=== PATIENT | male | born 1965 | race Caucasian/White ===

== ENCOUNTER 2021-09-10 10:22 | Inpatient (IN) ==
--- NOTE | 2021-09-06 15:37 | XRay Report ---
HISTORY: Preop for knee arthroplasty, bronchitis and asthma FINDINGS: The lungs are clear and not hyperinflated. The heart, mediastinum, alix and pleura are normal. There has been no significant change since 09/21/18. IMPRESSION: Normal chest. Interpreted and Authenticated by: Cam Gonzalez 09/06/21
[2021-09-06 16:28] LABS: Basophils # (Auto) 0.07 K/mcL (0.00-0.30); Eosinophils # (Auto) 0.12 K/mcL (0.00-0.70); Eosinophils % (Auto) 1.7 % (0.0-7.0); Hematocrit 45.8 % (40.1-51.0); Hemoglobin 15.2 g/dL (13.7-17.5); Lymphocytes # (Auto) 2.66 K/mcL (1.50-4.80); Mean Corpuscular HGB Conc 33.2 g/dL (31.0-36.0); Mean Platelet Volume 10.1 fL (7.4-10.4); Monocytes % (Auto) 8.3 % (1.0-12.0); Platelet Count 259 K/mcL (140-440); RBC 4.98 M/mcL (4.63-6.08); Red Cell Distribution Width 12.6 % (11.5-14.5); WBC 7.2 K/mcL (4.5-11.0)
[2021-09-06 17:11] LABS: Blood Urea Nitrogen 14 mg/dL (6-20); Calcium 9.5 mg/dL (8.6-10.4); Carbon Dioxide 28 mmol/L (22-30); Chloride 100 mmol/L (96-108); Glomerular Filtration Rate 83; Glucose 104 mg/dL (70-105)
[2021-09-06 17:36] LABS: Appearance,Urine CLEAR (Clear); Bilirubin,Urine Negative (Negative); Color,Urine YELLOW; Culture Indicated,Urine No; Glucose,Urine (UA) Negative (Negative); Ketones,Urine Negative (Negative); Leukocyte Esterase,Urine Negative /uL (Negative); Nitrate,Urine Negative (Negative); Protein,Urine Negative (Negative); Specific Gravity,Urine 1.021 (1.000-1.035); Urine Blood Negative (Negative); Urobilinogen,Urine Negative
--- NOTE | 2021-09-07 07:33 | EKG ---
[facility] Test Date: 2021-09-06 Pat Name: Gonzales Herring Department: [facility] Room: Gender: Male Application Support Engineer: : [id number] Requested By: Sunny Hoyt Order Number: [id number] Reading MD: Jerome Mcdonald D.O. Measurements Intervals Frost Rate: 60 P: 41 NC: 170 QRS: 24 QRSD: 109 T: 24 QT: 442 QTc: 442 Interpretive Statements Sinus rhythm Electronically Signed On 09-07-2021 7:33:41 PDT by Jerome Mcdonald D.O. /store/[email or web address]/[id number]
[~2021-09-10 10:22] MED LIST: 0.9 % SODIUM CHLORIDE 9 ML, KETOROLAC 30 MG, ROPIVACAINE HCL/PF 49.5 ML, EPINEPHrine 0.... IJ SCH; ACETAMINOPHEN 500 MG TABLET PO SCH; CELECOXIB 200 MG CAPSULE PO SCH; GABAPENTIN 300 MG CAPSULE PO SCH; IPRATROPIUM/ALBUTEROL 3 ML AMPUL.NEB NEB PRN; SCOPOLAMINE 1 PATCH PATCH TOPICAL PRN; ceFAZolin 3 GM in DEXTROSE 5% IN WATER 50 ML IV SCH; oxyCODONE 10 MG TAB.ER.12H PO SCH
[2021-09-10] MEDS ORDERED: DEXAMETHASONE 10 MG/ML VIAL ONE (16:53)
[2021-09-10] MEDS ORDERED: PROPOFOL 200 MG/20 ML VIAL IV ONE (16:53)
[2021-09-10] MEDS ORDERED: KETAMINE 50 MG/ML Syringe (ANEST) IV ONE (16:53)
[2021-09-10] MEDS ORDERED: ePHEDrine 50 MG/5 ML SYRINGE (ANEST) IV ONE (16:53)
[2021-09-10] MEDS ORDERED: MAGNESIUM SULFATE 2 GM/50 ML BAG IV ONE (16:53)
[2021-09-10] MEDS ORDERED: ROPIVACAINE HCL/PF 20 ML VIAL IJ ONE (16:53)
[2021-09-10] MEDS ORDERED: TRANEXAMIC ACID 1,000 MG/10 ML VIAL ONE (16:53)
[2021-09-10] MEDS ORDERED: ONDANSETRON 4 MG/2 ML VIAL ONE (16:53)
[2021-09-10] MEDS ORDERED: LIDOCAINE HCL/PF 100 MG/5 ML SYRINGE IV ONE (16:53)
--- NOTE | 2021-09-10 16:57 | Discharge Plan ---
Discharge Instructions - TKA Patient Instructions Total Knee Protocol: For Total Knee: Start ROM PATRICE with stationary bike or rocking chair. Work on gaining full extension of knee. Posterior dislocation precautions provided. Hip abductor strengthening and gait training instructions provided. Apply Cryocuff as instructed. Additional Dressing Instructions: Leave Zip line closure patch intact until followup Discharge Plan Patient/Caregiver Discharge Instructions Activity: ambulate only with your walker and as per physical therapy Diet: Regular Diet Prescriptions: New aspirin [Ecotrin Low Strength] 81 mg tablet,delayed release (DR/EC) 81 mg PO BID Qty: 60 0RF oxycodone-acetaminophen 5-325 mg tablet 1 - 2 tab PO Q4H MDD 8 PRN (Reason: pain) Qty: 75 0RF docusate sodium 100 mg capsule 100 mg PO BID Qty: 60 0RF No Action cholecalciferol (vitamin D3) 1,250 mcg (50,000 unit) capsule 1,250 mcg PO WE@0900 0RF losartan 50 mg tablet 50 mg PO DAILY 0RF fluoride (sodium) 1.1 % cream 1 applic dental BID 0RF mometasone 220 mcg/ actuation (120) aerosol powdr breath activated 220 mcg inhalation BID Qty: 3 3RF Rx Instructions: Vigorously gargle, rinse, and spit after each use fluticasone propionate [Flonase Allergy Relief] 50 mcg/actuation spray,suspension 1 spray intranasal BID Qty: 48 3RF Rx Instructions: administer into each nostril (DME) AutoPAP 9-15 cwp and supplies See Rx Instructions .Route .MEDSUPPLY Qty: 1 0RF Rx Instructions: Please assist with pressure change. triamcinolone acetonide 1 DOSE cream 1 dose topical BID 0RF omeprazole 20 MG capsule 20 mg PO ACB 0RF aspirin 81 MG tablet,delayed release (DR/EC) 81 mg PO DAILY 0RF Label Comments: HOLDING FOR SURGERY pravastatin 20 MG tablet 20 mg PO DAILY 0RF hydrochlorothiazide 25 MG tablet 25 mg PO DAILY 0RF carboxymethylcellulose sodium 1 EACH dropperette,gel 1 each OP BID 0RF Label Comments: BOTH EYES acetaminophen 325 MG capsule 650 mg PO BID 0RF albuterol sulfate 90 mcg/actuation aerosol powdr breath activated 2 inh inhalation DAILYP PRN (Reason: Shortness Of Breath) 0RF polyethylene glycol 3350 17 gram powder in packet 17 g PO DAILY 0RF chlorthalidone 25 mg Tablet 25 mg PO DAILY 0RF trazodone 100 mg Tablet 200 mg PO HSP PRN (Reason: Insomnia) 0RF gabapentin 300 mg Capsule 300 mg PO DAILY 0RF gabapentin 300 mg Capsule 600 mg PO HS 0RF ipratropium bromide 21 mcg (0.03 %) [place],Non-Aerosol 2 spray INTRANASAL BID 0RF Rx Instructions: administer into each nostril naproxen 500 mg Tablet 500 mg PO BID 0RF Label Comments: WILL HOLD FOR SURGERY methocarbamol 750 mg Tablet 1,500 mg PO BID 0RF benzonatate 100 mg capsule 100 mg PO BIDP PRN (Reason: Cough) 0RF Other Ambulatory Orders: CPM Discharge Order (ONCE) Location: None Selected Ordered By: Pranay Terry Physical Therapy DC - TKA (Routine) Location: None Selected Ordered By: Pranay Terry Toilet Riser Discharge Order (ONCE) Location: None Selected Ordered By: Pranay Terry Walker (ONCE) Location: None Selected Ordered By: Pranay Terry Follow Up Plan Follow up with: Pranay Terry PA-C [Physician Hospice Physician] - Patient Disposition: Home, Self-Care Prognosis: Good Rehab Potential: Good I certify that the patient requires SNF services: No Overall status at discharge: patient is progressing back to baseline Discharge Orders: Discharge Order (Routine); Ordered 09/11/21 Ordered By: Pranay Terry
[2021-09-10] MEDS ORDERED: MEPERIDINE 25 MG/ML VIAL IV PRN (18:48)
[2021-09-10] MEDS ORDERED: PROMETHAZINE 25 MG/ML VIAL IV PRN (18:48)
[2021-09-10] MEDS ORDERED: HYDROmorphone 0.5 MG/0.5 ML SYRINGE IV PRN (18:48)
[2021-09-10] MEDS ORDERED: ACETAMINOPHEN 1,000 MG/100 ML BAG IV ONE (18:48)
[2021-09-10] MEDS ORDERED: NALOXONE HCL 0.4 MG/ML VIAL IV PRN (18:48)
[2021-09-10] MEDS ORDERED: diphenhydrAMINE 50 MG/ML VIAL IV PRN (18:48)
[2021-09-10] MEDS ORDERED: IPRATROPIUM/ALBUTEROL 3 ML AMPUL.NEB NEB PRN (18:48)
[2021-09-10] MEDS ORDERED: ONDANSETRON 4 MG/2 ML VIAL IV PRN ×2 (18:48→19:08)
[2021-09-10] MEDS ORDERED: fentaNYL 100 MCG/2 ML VIAL IV PRN (18:48)
[2021-09-10] MEDS ORDERED: LACTATED RINGERS 250 ML IV PRN (18:48)
[2021-09-10] MEDS ORDERED: LACTATED RINGERS 1,000 ML IV SCH (19:00)
[2021-09-10] MEDS ORDERED: HYDROcodone/APAP 10/325MG TABLET PO PRN (19:08)
[2021-09-10] MEDS ORDERED: FLEETS ADULT ENEMA PR PRN (19:08)
[2021-09-10] MEDS ORDERED: BISACODYL 10 MG SUPP.RECT PR PRN (19:08)
[2021-09-10] MEDS ORDERED: HYDROmorphone 1 MG/ML SYRINGE IV PRN (19:08)
[2021-09-10] MEDS ORDERED: MAGNESIUM HYDROXIDE 30 ML ORAL.SUSP PO PRN (19:08)
[2021-09-10] MEDS ORDERED: TRANEXAMIC ACID 1,000 MG/10 ML VIAL IV ONE (19:08)
[2021-09-10] MEDS ORDERED: TEMAZEPAM 15 MG CAPSULE PO PRN (19:08)
[2021-09-10] MEDS ORDERED: ACETAMINOPHEN 325 MG TABLET PO PRN (19:08)
[2021-09-10] MEDS ORDERED: BENZOCAINE/MENTHOL 1 LOZENGE PO PRN (19:08)
[2021-09-10] MEDS ORDERED: POLYETHYLENE GLYCOL 3350 17 GM PACKET PO PRN (19:08)
--- NOTE | 2021-09-10 19:08 | Brief Operative Note ---
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
[2021-09-10] MEDS ORDERED: traZODone HCL 100 MG TABLET PO PRN (19:11)
[2021-09-10] MEDS ORDERED: BENZONATATE 100 MG CAPSULE PO PRN (19:11)
[2021-09-10] MEDS ORDERED: ALBUTEROL SULFATE 200 PUFF INHALER INH PRN (19:22)
[2021-09-10] MEDS: 0.45 % SODIUM CHLORIDE 1,000 ML IV SCH (20:37)
[2021-09-10] MEDS: 0.9 % SODIUM CHLORIDE 10 ML SYRINGE IV SCH (20:42)
[2021-09-10] MEDS: DOCUSATE SODIUM 100 MG CAPSULE PO SCH (20:43)
[2021-09-10] MEDS: ASPIRIN 81 MG TAB.CHEW PO SCH (20:43)
[2021-09-10] MEDS: NAPROXEN 250 MG TABLET PO SCH (20:44)
[2021-09-10] MEDS: METHOCARBAMOL 750 MG TABLET PO SCH (20:44)
[2021-09-10] MEDS: FLUORIDE 1.1% TOPICAL SCH (20:46)
[2021-09-10] MEDS: FLUTICASONE PROPIONATE SPRAY.NAS NS SCH (20:47)
[2021-09-10] MEDS: IPRATROPIUM 0.03% NASAL SPRAY BOTTLE 30ML NAS SCH (20:47)
[2021-09-10] MEDS: MOMETASONE INH SCH (20:48)
[2021-09-10] MEDS: CARBOXYMETHYLCELLULOSE SODIUM 1 EACH DROPER.GEL OU SCH (20:48)
[2021-09-10] MEDS ORDERED: SENNOSIDES 1 TABLET PO SCH (21:00)
[2021-09-10] MEDS ORDERED: GABAPENTIN 300 MG CAPSULE PO SCH (21:00)
[2021-09-10] MEDS: ceFAZolin 1 GM VIAL IV SCH (23:54)
--- NOTE | 2021-09-11 04:02 | XRay Report ---
CLINICAL INFORMATION: Post-Op Total Knee revision COMPARISON: Preoperative films 09/06/2021 FINDINGS: Total knee revision is anatomically aligned. No osseous abnormalities. Periarticular soft tissue swelling seen as expected. IMPRESSION: Total knee revision in anatomic alignment Interpreted and Authenticated by: Gregg Solomon 09/11/21
[2021-09-11] MEDS: 0.9 % SODIUM CHLORIDE 10 ML SYRINGE IV SCH (05:19)
[2021-09-11] MEDS: 0.45 % SODIUM CHLORIDE 1,000 ML IV SCH (05:19)
--- NOTE | 2021-09-11 07:22 | Orthopedic Progress Note ---
SUBJECTIVE Subjective Patient information: Note initiated : 09/11/21 at 7:21 am Service Date, if different from initiated Date: [] Patient: Gonzales Herring 56 y/o M admitted on 09/10/21 for Left Total Knee Arthroplasty Revision . Chief Complaint: [Pt is stable this morning on post operative day without any significant concerns or complaints. Patients vital signs have remained stable. Patients dressing is dry and is grossly intact from a neurovascular and motor standpoint. Patients 10 point ROS is otherwise negative. ] Constitutional Vitals: Vital Signs Temp Pulse Resp BP Pulse Ox 97.9 F 77 18 105/63 93 09/11/21 03:24 09/11/21 03:24 09/11/21 03:24 09/11/21 03:24 09/11/21 03:24 Period Temp Pulse Resp BP Sys/Johns Pulse Ox Last 24 Hr 96.8 F-98.6 F 59-87 16-21 105-158/63-97 93-100 Intake and Output 09/10/21 09/11/21 09/11/21 21:59 05:59 13:59 Intake Total 2450 3590 Output Total 50 1974 Balance 2400 1615 Weight 272 lb 8 oz Intake & Output: Intake & Output 09/10/21 09/11/21 09/11/21 21:59 05:59 13:59 Intake Total 2450 3590 Output Total 50 1974 Balance 2400 1615 Weight 272 lb 8 oz Intake: IV 150 870 Sodium Chloride 0.45% 1,000 ml 870 @ 100 mls/hr IV .Q10H [facility] Rx#: [id number] Ancef 3 gm In Dextrose 5% in 50 Water 50 ml @ 100 mls/hr IV PREOP [facility] Rx#:[id number] Oral 500 2720 IV - Manual Only 1800 Output: Void Amount 1975 Estimated Blood Loss 50 Other: Urine Appearance Clear Clear Straight Clear Urine Color Bright Yellow Bright Yellow Straight Bright Yellow Urine Odor Normal Strong Straight Normal Extremities Exam Extremities exam: Present normal capillary refill, normal inspection, Foot pink and warm and neurovascular intact OBJ DATA Labs CBC & Chem 7: 09/11/21 05:19 09/06/21 12:55 Labs: Abnormal Lab Results 09/11/21 05:19 Hct 38.6 L Meds: Medications Acetaminophen (Acetaminophen 325 Mg Tablet) 650 mg PO Q6HP PRN; Protocol PRN Reason: Per Pain Protocol/Fever > 101 Acetaminophen (Acetaminophen 325 Mg Tablet) 650 mg PO BID [facility] Hydrocodone Bitart/Acetaminophen (Hydrocodone/Apap 10/325mg Tablet) 1 - 2 tab PO Q4HP PRN; Protocol PRN Reason: Per Pain Protocol Albuterol Sulfate (Albuterol Sulfate 200 Puff Inhaler) 2 puff INH DAILYP PRN PRN Reason: Shortness Of Breath Artificial Tears (Carboxymethylcellulose Sodium 1 Each Droper.Gel) 1 each OU BID [facility] Last Admin: 09/10/21 20:48 Dose: 1 each Documented by: Aspirin (Aspirin 81 Mg Tab.Chew) 81 mg PO BID [facility] Last Admin: 09/10/21 20:43 Dose: 81 mg Documented by: Benzonatate (Benzonatate 100 Mg Capsule) 100 mg PO BIDP PRN PRN Reason: Cough Bisacodyl (Bisacodyl 10 Mg Supp.Rect) 10 mg TX Q2-3DAYS PRN PRN Reason: Constipation Cefazolin Sodium (Cefazolin 1 Gm Vial) 2 gm IV Q8H [facility]; Protocol Stop: 09/11/21 08:01 Last Admin: 09/10/21 23:54 Dose: 2 gm Documented by: Chlorthalidone (Chlorthalidone 25 Mg Tablet) 25 mg PO DAILY [facility] Docusate Sodium (Docusate Sodium 100 Mg Capsule) 100 mg PO BID [facility] Last Admin: 09/10/21 20:43 Dose: 100 mg Documented by: Ergocalciferol (Ergocalciferol (Vitamin D2) 50,000 Unit Capsule) 1,250 unit PO WE@0900 [facility] Fluticasone Propionate (Fluticasone Propionate [place].Kerri) 1 spray NS BID [facility] Last Admin: 09/10/21 20:47 Dose: 1 spray Documented by: Gabapentin (Gabapentin 300 Mg Capsule) 300 mg PO DAILY [facility] Gabapentin (Gabapentin 300 Mg Capsule) 600 mg PO HS [facility] Last Admin: 09/10/21 20:43 Dose: 600 mg Documented by: Hydrochlorothiazide (Hydrochlorothiazide 25 Mg Tablet) 25 mg PO DAILY [facility] Hydromorphone HCl (Hydromorphone 1 Mg/Ml Syringe) 0.5 - 2 mg IV Q2HP PRN; Protocol PRN Reason: Per Pain Protocol Ipratropium [place] (Ipratropium 0.03% Nasal [place] Bottle 30ml) 2 spray KERRI BID [facility] Last Admin: 09/10/21 20:47 Dose: 2 spray Documented by: Losartan Potassium (Losartan 50 Mg Tablet) 50 mg PO DAILY [facility] Magnesium Hydroxide (Magnesium Hydroxide 30 Ml Oral.Susp) 30 ml PO BIDP PRN PRN Reason: Constipation Methocarbamol (Methocarbamol 750 Mg Tablet) 1,500 mg PO BID [facility] Last Admin: 09/10/21 20:44 Dose: 1,500 mg Documented by: Naproxen (Naproxen 250 Mg Tablet) 500 mg PO BID [facility]; Protocol Last Admin: 09/10/21 20:44 Dose: 500 mg Documented by: Omeprazole (Omeprazole 20 Mg Capsule) 20 mg PO ACB [facility] Last Admin: 09/11/21 07:16 Dose: 20 mg Documented by: Ondansetron HCl (Ondansetron 4 Mg/2 Ml Vial) 4 mg IV Q4HP PRN PRN Reason: Nausea And Vomiting Fluoride (Sodium) 1. (1 % Cream) 1 dose TOPICAL BID [facility] Last Admin: 09/10/21 20:46 Dose: Not Given Documented by: Mometasone 220 Mcg/ (Actuation Inh) 1 dose INH BID [facility] Last Admin: 09/10/21 20:48 Dose: 1 dose Documented by: Polyethylene Glycol (Polyethylene Glycol 3350 17 Gm Packet) 17 gm PO DAILY [facility] Senna (Sennosides 1 Tablet) 2 tab PO HS [facility] Last Admin: 09/10/21 20:43 Dose: 2 tab Documented by: Simvastatin (Simvastatin 10 Mg Tablet) 10 mg PO DAILY [facility] Sodium Biphosphate/Sodium Phosphate (Fleets Adult Enema) 1 dose TX Q3-4DAYS PRN PRN Reason: Constipation Sodium Chloride (0.9 % Sodium Chloride 10 Ml Syringe) 10 ml IV Q8 [facility] Last Admin: 09/11/21 05:19 Dose: Not Given Documented by: Temazepam (Temazepam 15 Mg Capsule) 15 mg PO HSP PRN PRN Reason: Insomnia Throat Lozenges (Benzocaine/Menthol 1 Lozenge) 1 lozenge PO PRN PRN PRN Reason: Sore Throat Trazodone HCl (Trazodone Hcl 100 Mg Tablet) 200 mg PO HSP PRN PRN Reason: Insomnia Last Admin: 09/11/21 00:04 Dose: 200 mg Documented by: A/P Narrative A/P Narrative: The patient has been educated regarding dressing care, , restrictions, and follow up appointments. The patient has had all necessary DME prescribed. The patient has remained relatively stable during their hospital course. Time Spent With Patient Time: Total time spent is greater than 50% in coordination of care (as documented) at patient's floor/unit and/or counseling patient: Total time spent with greater than 50% in coordination of care (as documented) at patient's floor/unit and/or counseling patient:: less than 15 minutes Critical Care Time: No
[2021-09-11] MEDS ORDERED: OMEPRAZOLE 20 MG CAPSULE PO SCH (07:30)
--- NOTE | 2021-09-11 08:14 | Operative Note ---
DATE OF OPERATION: 09/10/2021 PREOPERATIVE DIAGNOSIS: Mechanically failed DePuy total knee arthroplasty. POSTOPERATIVE DIAGNOSIS: Mechanically failed DePuy total knee arthroplasty. PROCEDURE: Left total knee revision . IMPLANTS: Mary total knee implant; size 6 tibial baseplate with 150 mm stem; femoral stem measuring 18 mm, cementless with a size 7 femoral stem; 19 mm constrained liner with a 40 mm oval patella. All these components on the baseplate were cemented. The stems were not cemented. ESTIMATED BLOOD LOSS: About 89 mL. COMPLICATIONS: None. BLOOD PRODUCTS GIVEN: None. Tranexamic acid was given. SPECIMENS: High-powered field specimens were sent, which showed inflammatory cells. DISPOSITION: To PACU. DESCRIPTION OF PROCEDURE: The patient was brought to the operating room, put to sleep with general LMA anesthesia. Once asleep, the patient had the left leg sterilely prepped and draped in the usual sterile fashion. Timeout was performed. We made a midline incision, a midvastus approach was performed identifying a very inflamed knee with a loose tibial baseplate. This baseplate was tapped and removed. We removed the femoral component, which was better fixed with flexible osteotomes, preserving most of the bone. The poly liner had been removed and the patellar component had been removed. We irrigated thoroughly and then performed a complete synovectomy. We placed an intramedullary guide amrit in the tibia and the femur and made mechanical cuts. Once done, we irrigated thoroughly and sized the femur to a size 7. The tibia was a size 6 with 5 mm augments on both the tibia and the femur. Once this was done, we irrigated thoroughly and then prepared the patella. Total thickness was 28 mm. This was cut down to 16 mm and we placed a 40 mm oval patella. We restored 27 mm to the patella. We irrigated thoroughly and then cemented into place the revised components. Great care was taken to avoid neurovascular structures. We injected the posterior capsule with the post-injection formula. Patient tolerated this well. We irrigated thoroughly and a size 7 femur was placed with 18 mm cementless stem, 5 mm augments distally. The tibia was 5 mm augments on a 6 mm tibial baseplate with a 19 mm poly post. The patella measured a 40 mm oval patella, which replaced different design. We irrigated thoroughly and excess cement had been removed. Once this was done, we took the knee through range of motion. The knee was very stable. We irrigated thoroughly and closed the midvastus approach with #1 Stratafix x2, closed the skin with Stratafix and adhesive closure. Sterile bandage was applied, tourniquet deflated at 101 minutes. RBH:deejay Job ID: [id number] Doc ID: [id number] Sunny Hoyt MD
[2021-09-11] MEDS: ceFAZolin 1 GM VIAL IV SCH (08:41)
[2021-09-11] MEDS: ASPIRIN 81 MG TAB.CHEW PO SCH (08:41)
[2021-09-11] MEDS: METHOCARBAMOL 750 MG TABLET PO SCH (08:43)
[2021-09-11] MEDS: NAPROXEN 250 MG TABLET PO SCH (08:43)
[2021-09-11] MEDS: DOCUSATE SODIUM 100 MG CAPSULE PO SCH (08:43)
[2021-09-11] MEDS: IPRATROPIUM 0.03% NASAL SPRAY BOTTLE 30ML NAS SCH (08:44)
[2021-09-11] MEDS: FLUTICASONE PROPIONATE SPRAY.NAS NS SCH (08:44)
[2021-09-11] MEDS: MOMETASONE INH SCH (08:45)
[2021-09-11] MEDS: CARBOXYMETHYLCELLULOSE SODIUM 1 EACH DROPER.GEL OU SCH (08:46)
[2021-09-11] MEDS: FLUORIDE 1.1% TOPICAL SCH (08:46)
[2021-09-11] MEDS ORDERED: CHLORTHALIDONE 25 MG TABLET PO SCH (09:00)
[2021-09-11] MEDS ORDERED: ACETAMINOPHEN 325 MG TABLET PO SCH (09:00)
[2021-09-11] MEDS ORDERED: LOSARTAN 50 MG TABLET PO SCH (09:00)
[2021-09-11] MEDS ORDERED: GABAPENTIN 300 MG CAPSULE PO SCH (09:00)
[2021-09-11] MEDS ORDERED: HYDROCHLOROTHIAZIDE 25 MG TABLET PO SCH (09:00)
[2021-09-11] MEDS ORDERED: PRAVASTATIN 20 MG TABLET PO SCH (09:00)
[2021-09-11] MEDS ORDERED: ASPIRIN 81 MG PO SCH (09:00)
[2021-09-11] MEDS ORDERED: SIMVASTATIN 10 MG TABLET PO SCH (09:00)
[2021-09-11] MEDS ORDERED: POLYETHYLENE GLYCOL 3350 17 GM PACKET PO SCH (09:00)
[2021-09-12] MEDS ORDERED: ERGOCALCIFEROL (VITAMIN D2) 50,000 UNIT CAPSULE PO SCH (09:00)
== END 2021-09-11 11:05 | disposition home or self-care (01) | DRG 468 ==
LOC: MEDSUR 10:22 → EDSTATUS 14:15
PROVIDERS: ADMIT Orthopaedic Surgery; ATTEND Orthopaedic Surgery